=== PATIENT | female | born 1990 | race Caucasian/White ===

== ENCOUNTER 2024-07-12 20:11 | Emergency (ER) | payer MEDICAID ==
[~2024-07-12] VITALS: Ht 149.9 cm; Wt 75.0 kg
[2024-07-12 20:33] VITALS: O2SAT 98
[2024-07-12] MEDS: ACETAMINOPHEN 325MG TABLET PO STA (22:04)
[2024-07-12 23:20] LABS: CLARITY URINE CLEAR (CLEAR); COLOR URINE YELLOW (YELLOW); GLUCOSE URINE NEGATIVE (NEGATIVE); KETONES URINE TRACE (NEGATIVE); PH URINE 6.5 (4.5-8.0); PROTEIN URINE TRACE (NEGATIVE); SPECIFIC GRAVITY URINE 1.036 (1.005-1.030)
[2024-07-12 23:21] LABS: LEUKOCYTE ESTERASE URINE NEGATIVE (NEGATIVE); NITRITE URINE NEGATIVE (NEGATIVE); OCCULT BLOOD URINE NEGATIVE (NEGATIVE); RBC URINE NONE SEEN /hpf (0-2); SQUAMOUS EPITHELIAL CELL URINE NONE SEEN /lpf (RARE/1+); UROBILINOGEN URINE 1 E.U./dL (0.2-1.0); WBC URINE NONE SEEN /hpf (0-2)
[2024-07-12 23:22] LABS: BACTERIA URINE NONE SEEN; MUCUS URINE 1+ /lpf (< = 2+)
[2024-07-12] MEDS: ACETAMINOPHEN 325MG TABLET PO NR (23:45)
[2024-07-12] MEDS: ONDANSETRON 4MG ODT PO NR (23:45)
[2024-07-12] MEDS: ONDANSETRON 4MG ODT PO STA (23:52)
[2024-07-13 00:01] LABS: HEMATOCRIT. 40.9 % (36.0-48.0); HEMOGLOBIN. 13.4 g/dL (12.0-16.0); MEAN CORPUSCULAR HEMOGLOBIN 28.2 pg (28.0-32.0); MEAN CORPUSCULAR HGB CONC 32.7 g/dL (31.0-37.0); MEAN PLATELET VOLUME 9.1 fl (7.4-10.4); PLATELET 256 x1000/uL (130-400); RED BLOOD CELL COUNT 4.75 mill/uL (4.2-5.4); WHITE BLOOD COUNT 14.7 x1000/uL (4.5-11.0)
[2024-07-13 00:05] LABS: DIFFERENTIAL COMMENT 1
[2024-07-13 00:08] LABS: CHLORIDE 104 mEq/L (98-107); POTASSIUM 3.9 mEq/L (3.5-5.1); SODIUM 136 mEq/L (136-145)
[2024-07-13 00:09] LABS: CARBON DIOXIDE 21 mEq/L (21-32)
[2024-07-13 00:10] LABS: CALCIUM 9.1 mg/dL (8.7-10.4)
[2024-07-13 00:14] LABS: CREATININE 0.8 mg/dL (0.6-1.0)
[2024-07-13 00:15] LABS: GLUCOSE 113 mg/dL (70-105); UREA NITROGEN BLOOD 11 mg/dL (9-23)
[2024-07-13 00:16] LABS: ALANINE AMINOTRANSFERASE 20 IU/L (10-49); ALBUMIN 4.3 g/dL (3.2-4.8); ASPARTATE AMINOTRANSFERASE 21 IU/L (<34)
[2024-07-13 00:17] LABS: BILIRUBIN DIRECT 0.8 mg/dL (<=3.0); PROTEIN TOTAL 6.9 g/dL (6.0-8.3)
[2024-07-13 00:18] LABS: HCG SCREEN NEGATIVE
[2024-07-13 00:37] LABS: PLATELET ESTIMATE NORMAL
[2024-07-13] MEDS ORDERED: ONDA4TAB50 MT (01:08)
[2024-07-13 02:25] VITALS: BP 98/59; PULSE 56; RESP 16; TEMP 37.39188; O2SAT 100
== END 2024-07-13 02:25 | disposition home or self-care (01) ==
LOC: ER 20:11
DX: R19.7 Diarrhea, unspecified (principal); R10.9 Unspecified abdominal pain; Z88.0 Allergy status to penicillin
CPT/HCPCS: 99284; 80076; 80048; 81003; 81025; 84703; 83690; 85025; 36415; 74176; Q0162